=== PATIENT | female | born 1970 | race Caucasian/White ===

== ENCOUNTER 2022-09-01 07:05 | Day surgery (SDC) | payer OTHER ==
[2022-09-01] MEDS ORDERED: Midazolam 1 MG/ML 2 ML SDV ONE (07:24)
[2022-09-01] MEDS ORDERED: fentaNYL 50 MCG/ML SDV ONE (07:25)
[2022-09-01] MEDS ORDERED: Propofol 200 MG/20 ML SDV ONE ×2 (07:25→09:15)
[2022-09-01] MEDS ORDERED: Dextrose 5%-Lactated Ringers 1,000 ML IV SCH (08:00)
[2022-09-01] MEDS ORDERED: Glycopyrrolate 0.2 MG/ML 2 ML SDV IVPUSH ONE (08:30)
[2022-09-01] MEDS ORDERED: Pantoprazole 40 MG Vial IVPUSH ONE (09:45)
== END 2022-09-01 10:27 | disposition home or self-care (01) ==
LOC: JP.SDS 07:05
PROVIDERS: ATTEND Surgery
DX: Z12.11 Encounter for screening for malignant neoplasm of colon (principal); K21.9 Gastro-esophageal reflux disease without esophagitis; Z98.84 Bariatric surgery status
CPT/HCPCS: 43239; 45378; 87081; 88305; C9113; J2250; J2704; J3010; J7121